=== PATIENT | male | born 1960 | race Asian ===

== ENCOUNTER 2020-09-27 13:36 | Outpatient (CLI) | payer BC | END 2020-09-27 13:37 | disposition home or self-care (01) | LOC: CSHMRI 13:36 | PROVIDERS: ATTEND Physician Assistant Medical | DX: B18.1 Chronic viral hepatitis B without delta-agent (principal); I85.00 Esophageal varices without bleeding; K76.9 Liver disease, unspecified; K74.60 Unspecified cirrhosis of liver; K76.0 Fatty (change of) liver, not elsewhere classified; K76.89 Other specified diseases of liver | CPT/HCPCS: 74183 ==